=== PATIENT | male | born 1965 | race Caucasian/White ===

== ENCOUNTER 2022-08-21 11:25 | Emergency (ER) | payer OTHER ==
[2022-08-21] MEDS ORDERED: Sodium Chloride 0.9% 1,000 ML IV ONE (12:20)
[2022-08-21] MEDS ORDERED: diphenhydrAMINE 50 MG/ML SDV IVPUSH ONE (12:20)
[2022-08-21] MEDS ORDERED: Ketorolac 15 MG/ML SDV IVPUSH ONE (12:23)
[2022-08-21] MEDS ORDERED: Metoclopramide 10 MG/2 ML SDV IVPUSH ONE (12:23)
[2022-08-21 14:03] LABS: CORONAVIRUS COVID-19 NAA NEGATIVE (NEGATIVE)
== END 2022-08-21 14:49 | disposition home or self-care (01) ==
LOC: JD.ED 11:25
DX: I10 Essential (primary) hypertension (principal); Z20.822 Contact with and (suspected) exposure to COVID-19
CPT/HCPCS: 0240U; 36415; 80053; 84484; 85025; 93005; 96361; 96374; 96375; 99283; J1200; J1885; J2765; J7030